=== PATIENT | female | born 1980 | race Two or more races ===

== ENCOUNTER 2024-03-14 13:32 | Emergency (ER) | payer OTHER ==
[~2024-03-14] VITALS: Ht 154.9 cm; Wt 52.6 kg
[2024-03-14] MEDS ORDERED: TOPROL XL25 M1 (13:58)
[2024-03-14] MEDS ORDERED: FAMOtidine 10 MG/ML (4ML VIAL) IV ONE (15:30)
[2024-03-14] MEDS ORDERED: KETOROLAC TROMETHAMINE 60 MG VIAL IM ONE (15:30)
[2024-03-14] MEDS ORDERED: 0.9 % SODIUM CHLORIDE 1,000 ML IV ONE (15:30)
[2024-03-14] MEDS ORDERED: PROMETHAZINE HCL 25 MG/ML AMPUL IM ONE (15:30)
[2024-03-14 16:02] LABS: HEMATOCRIT 39.6 % (36.0-45.00); HEMOGLOBIN 13.3 g/dL (12.0-15.00); MEAN CELL VOLUME 94.3 fL (80.00-100.00); MEAN CORPUSCULAR HEMOGLOBIN 31.6 pg (27.00-32.0); MEAN CORPUSCULAR HGB CONC 33.5 g/dl (32.0-36.0); PLATELET COUNT 342 K/uL (150-450); RED CELL DISTRIBUTION WIDTH 13.3 % (11.5-14.5)
[2024-03-14 16:23] LABS: INR 1.08; PARTIAL THROMBOPLASTIN TIME 25.9 SECONDS (22.0-34.0); PROTHROMBIN TIME 11.7 SECONDS (9.0-11.5)
[2024-03-14 16:30] LABS: ALBUMIN 3.9 gm/dL (3.4-5.0); ALKALINE PHOSPHATASE 30 U/L (50-136); ALT/SGPT 23 U/L (12-78); AMYLASE 62 U/L (25-115); ANION GAP 8 (10.0-20.0); AST/SGOT 15 U/L (15-37); BLOOD UREA NITROGEN 12 mg/dL (7-18); BUN CREA RATIO 16 (7.0-25.0); CARBON DIOXIDE 29 mEq/L (21-32); CHLORIDE 106 mmol/L (98-107); CREATININE SERUM 0.73 mg/dL (0.55-1.02); GFR 86.21; GLOBULINA 3.6 G/DL (2.4-3.5); GLUCOSE FASTING 92 mg/dL (65-100); LIPASE 43 U/L (13-75); OSMOLALITY SERUM 277 MOSM/KG (275-295); POTASSIUM 3.84 mEq/L (3.5-5.1); SODIUM 139 mmol/L (136-145); TOTAL PROTEIN 7.5 gm/dL (6.4-8.2)
[2024-03-14 16:35] LABS: HCG QUANTITATIVE < 1 mUI/mL (1-3)
[2024-03-14 17:37] LABS: PH,URINE 5.5 (5.0-8.0); URINE APPEARANCE Clear; URINE BILIRRUBIN Negative (NEGATIVE); URINE BLOOD Negative; URINE COLOR Yellow; URINE GLUCOSE Negative (NEGATIVE); URINE KETONE Negative (NEGATIVE); URINE LEUKOCYTE Negative; URINE NITRATE Negative; URINE PROTEIN Negative (NEGATIVE); URINE UROBILINOGEN 0.2 E.U./dl
[2024-03-14 17:41] LABS: URINE EPITHELIAL CELLS 1.5 uL (0.0-38.8)
[2024-03-14 17:42] LABS: URINE BACTERIA 1.2 uL (0.0-1933); URINE RBC 0.9 uL (0.0-20.8); URINE WBC 0.7 uL (0.0-23.2)
== END 2024-03-14 19:33 | disposition home or self-care (01) ==
LOC: ER 13:33
PROVIDERS: General Practice
DX: K52.89 Other specified noninfective gastroenteritis and colitis (principal); R10.32 Left lower quadrant pain; Z88.0 Allergy status to penicillin; Z88.8 Allergy status to other drugs, medicaments and biological substances; I49.8 Other specified cardiac arrhythmias